=== PATIENT | male | born 1980 | race Caucasian/White ===

== ENCOUNTER 2022-11-01 10:30 | Emergency (ER) | payer SELFPAY ==
[~2022-11-01] VITALS: Ht 180.3 cm; Wt 108.0 kg
[2022-11-01 10:32] VITALS: BP 192/125
[2022-11-01] MEDS ORDERED: LIDOcaine 1% W/epiNEPHrine 1:100,000 20ml vial IJ ONE (11:05)
[2022-11-01] MEDS ORDERED: sulfamethoxazole/trimethoprim DS (800/160mg) tablet PO ONE (11:05)
[2022-11-01] MEDS ORDERED: TETanus/Pertussis (Acell)/Diphther VAC/PF (Tdap-Adult) 0.5ml syringe IMVAC ONE (11:05)
[2022-11-01] MEDS ORDERED: bacitracin 15gm ointment TP ONE (11:05)
[2022-11-01] MEDS ORDERED: SULF1TAB49 PO (11:08)
== END 2022-11-01 12:25 | disposition home or self-care (01) ==
LOC: ER 10:30
DX: S31.821A Laceration without foreign body of left buttock, initial encounter (principal); F17.200 Nicotine dependence, unspecified, uncomplicated; W19.XXXA Unspecified fall, initial encounter; Y93.89 Activity, other specified; Y92.89 Other specified places as the place of occurrence of the external cause; Y99.8 Other external cause status
CPT/HCPCS: 12035; 90471; 90715; 99284; J7030; A6253; A6449